=== PATIENT | male | born 1965 | race Caucasian/White ===

== ENCOUNTER 2018-05-23 05:30 | Inpatient (IN) | payer OTHER ==
[~2018-05-23] VITALS: Ht 170.2 cm; Wt 100.5 kg
[2018-05-23] MEDS ORDERED: HEPARIN 1,000 UNITS/ML, 30ML ONE (05:55)
[2018-05-23] MEDS ORDERED: LACTATED RINGERS 1,000 ML IV SCH (06:25)
[2018-05-23] MEDS ORDERED: LISI2.5T PO (06:33)
[2018-05-23] MEDS ORDERED: COLC0.6C3 PO (06:33)
[2018-05-23] MEDS ORDERED: ATOR-2 PO (06:33)
[2018-05-23] MEDS ORDERED: METO25TA35 PO (06:33)
[2018-05-23] MEDS ORDERED: ASPI-496 PO (06:33)
[2018-05-23] MEDS ORDERED: ALLO300T PO (06:33)
[2018-05-23] MEDS ORDERED: LIDOCAINE 1%-EPI 1:100K, 20ML ONE (06:59)
[2018-05-23] MEDS ORDERED: THROMBIN 5,000 UNIT VIAL TP ONE (06:59)
[2018-05-23] MEDS ORDERED: VANCOMYCIN 1,000 MG ONE (06:59)
[2018-05-23] MEDS ORDERED: BACITRACIN 50,000 UNIT ONE (06:59)
[2018-05-23] MEDS ORDERED: MIDAZOLAM 1 MG/ML, 2ML ONE (07:14)
[2018-05-23] MEDS ORDERED: FENTANYL PF 250 MCG/5ML ONE (07:22)
[2018-05-23] MEDS ORDERED: FAMOTIDINE 20 MG TABLET PO ONE (07:30)
[2018-05-23] MEDS ORDERED: DIAZEPAM 5 MG TABLET PO ONE (07:30)
[2018-05-23] MEDS ORDERED: GABAPENTIN 300 MG CAPSULE PO ONE (07:30)
[2018-05-23] MEDS ORDERED: ACETAMINOPHEN 500 MG TABLET PO ONE (07:30)
[2018-05-23] MEDS ORDERED: EPHEDRINE 50 MG/ML, 1ML ONE (07:46)
[2018-05-23] MEDS ORDERED: HYDROmorphone 2 MG/ML, 1ML IVPush PRN (08:00)
[2018-05-23] MEDS ORDERED: LABETALOL 5MG/ML, 20ML IV PRN (08:00)
[2018-05-23] MEDS ORDERED: DIAZEPAM 5 MG/ML, 2ML IVPush PRN (08:00)
[2018-05-23] MEDS ORDERED: hydrALAzine 20 MG/ML, 1ML IV PRN (08:00)
[2018-05-23] MEDS ORDERED: PROMETHAZINE 25 MG/ML, 1ML IV PRN (08:00)
[2018-05-23] MEDS ORDERED: OXYcodone 5 MG/5 ML ORAL.SOL UDC PO PRN (08:00)
[2018-05-23] MEDS ORDERED: ONDANSETRON 2MG/ML, 2ML IV PRN ×2 (08:00→13:30)
[2018-05-23] MEDS ORDERED: ONDANSETRON ODT 8 MG PO PRN (08:00)
[2018-05-23] MEDS ORDERED: PROPOFOL 10 MG/ML, 20ML ONE (08:32)
[2018-05-23] MEDS ORDERED: ROCURONIUM 10MG/ML,5ML ONE (08:32)
[2018-05-23] MEDS ORDERED: GLYCOPYRROLATE 0.2MG/1ML, 5ML ONE (08:32)
[2018-05-23] MEDS ORDERED: ONDANSETRON 2MG/ML, 2ML ONE (08:32)
[2018-05-23] MEDS ORDERED: CEFAZOLIN 1,000 MG ONE (08:32)
[2018-05-23] MEDS ORDERED: NEOSTIGMINE 1 MG/ML, 10ML ONE (08:32)
[2018-05-23] MEDS ORDERED: DEXAMETHASONE 4 MG/ML, 1ML ONE (08:32)
[2018-05-23] MEDS ORDERED: SUCCINYLCHOLINE 20 MG/ML, 10ML ONE (08:32)
[2018-05-23] MEDS ORDERED: HEPARIN 1,000 UNITS/ML, 30ML IVPB ONE (08:58)
[2018-05-23] MEDS ORDERED: SUGAMMADEX 200 MG/2 ML IVPush ONE (08:58)
[2018-05-23] MEDS ORDERED: MEPERIDINE/PF 50 MG/ML ONE (09:18)
[2018-05-23] MEDS ORDERED: FENTANYL PF 100 MCG/2ML ONE (10:01)
[2018-05-23] MEDS ORDERED: OXYcodone 5 MG/5 ML ORAL.SOL UDC ONE (10:01)
[2018-05-23] MEDS: FENTANYL PF 100 MCG/2ML IV PRN ×2 (10:05→10:30)
[2018-05-23] MEDS ORDERED: METOCLOPRAMIDE 5 MG/ML, 2ML ONE (10:11)
[2018-05-23] MEDS ORDERED: METOCLOPRAMIDE 5 MG/ML, 2ML IVPush ONE (11:00)
[2018-05-23] MEDS ORDERED: HYDROcodone/APAP 5/325 TABLET PO PRN (13:30)
[2018-05-23] MEDS ORDERED: DIPHENHYDRAMINE 50 MG/ML, 1ML IVPush PRN (13:30)
[2018-05-23] MEDS ORDERED: DIAZEPAM 5 MG TABLET PO PRN (13:30)
[2018-05-23] MEDS ORDERED: PROMETHAZINE 25 MG/ML, 1ML IM PRN (13:30)
[2018-05-23] MEDS ORDERED: MAGNESIUM HYDROXIDE 8%, 30ML UDC PO PRN (13:30)
[2018-05-23] MEDS ORDERED: BISACODYL 10 MG SUPP PR PRN (13:30)
[2018-05-23] MEDS ORDERED: DIPHENHYDRAMINE 50 MG/ML, 1ML IM PRN (13:30)
[2018-05-23] MEDS ORDERED: HYDROcodone/APAP 10/325 MG TABLET PO PRN (13:30)
[2018-05-23] MEDS ORDERED: morphine SULFATE 10 MG/ML, 1ML IV PRN (13:30)
[2018-05-23] MEDS ORDERED: DIPHENHYDRAMINE 50 MG CAPSULE PO PRN (13:30)
[2018-05-23 13:32] VITALS: BP 143/76
[2018-05-23] MEDS: D5%-0.9% NACL+KCL 20MEQ 1,000 ML IV SCH (14:08)
[2018-05-23] MEDS: METOCLOPRAMIDE 5 MG/ML, 2ML IV SCH ×2 (14:08→20:06)
[2018-05-23] MEDS ORDERED: COLCHICINE 0.6 MG TABLET PO ONE (15:00)
[2018-05-23] MEDS: CEFAZOLIN PMX 1GM/50ML 50 ML IVPB SCH (15:52)
[2018-05-23 20:38] VITALS: BP 113/64
[2018-05-23] MEDS ORDERED: ATORVASTATIN 80 MG TABLET PO SCH (21:00)
[2018-05-23 23:28] VITALS: BP 115/66
[2018-05-24] MEDS: D5%-0.9% NACL+KCL 20MEQ 1,000 ML IV SCH ×2 (00:47→09:30)
[2018-05-24] MEDS: CEFAZOLIN PMX 1GM/50ML 50 ML IVPB SCH (00:47)
[2018-05-24] MEDS: METOCLOPRAMIDE 5 MG/ML, 2ML IV SCH ×2 (02:03→07:30)
[2018-05-24 03:35] VITALS: BP 123/69
[2018-05-24 04:42] LABS: BASOPHILS # (AUTO) 0.04 x10^3/uL (0-0.1); BASOPHILS % (AUTO) 0 % (0-1); EOSINOPHILS % (AUTO) 2 % (1-7); LYMPHOCYTES # (AUTO) 1.39 x10^3/uL (1-3.4); LYMPHOCYTES % (AUTO) 13 % (22-44); MD NO; MEAN CORPUSCULAR HGB CONC 33.9 g/dL (33.2-36.2); MEAN CORPUSCULAR VOLUME 91.3 fL (81-97); MEAN PLATELET VOLUME 9.8 fL (7.4-10.4); MONOCYTES # (AUTO) 0.99 x10^3/uL (0.2-0.8); MONOCYTES % (AUTO) 9 % (2-9); NEUTROPHILS # (AUTO) 8.46 x10^3/uL (1.8-6.8); NEUTROPHILS % (AUTO) 76 % (42-75); PLATELET COUNT 164 x10^3/uL (130-400); RED BLOOD COUNT 4.39 x10^6/uL (4.38-5.82)
[2018-05-24 04:57] LABS: ANION GAP 6 mmol/L (5-15); CHLORIDE 110 mmol/L (98-107)
[2018-05-24 04:59] LABS: CREATININE 0.79 mg/dL (0.7-1.3)
[2018-05-24] MEDS: ENOXAPARIN 30 MG/0.3 ML SQ SCH ×2 (05:53→10:47)
[2018-05-24 07:25] VITALS: BP 147/75
[2018-05-24] MEDS ORDERED: COLCHICINE 0.6 MG TABLET PO SCH (09:00)
[2018-05-24] MEDS ORDERED: SENNA/DOCUSATE TABLET PO SCH (09:00)
[2018-05-24] MEDS ORDERED: LISINOPRIL 5 MG TABLET PO SCH (09:00)
[2018-05-24] MEDS ORDERED: METOPROLOL TARTRATE 25 MG TABLET PO SCH (09:00)
[2018-05-24] MEDS ORDERED: ALLOPURINOL 300 MG TABLET PO SCH (09:00)
[2018-05-24] MEDS ORDERED: HYDR-3307 PO (09:59)
[2018-05-24] MEDS ORDERED: ENOX40SY4 SQ (10:00)
== END 2018-05-24 11:30 | disposition home or self-care (01) | DRG 460 ==
LOC: ORIP 05:30 → 4NOR 10:53 → DCLOUNGE 05-24 11:05
PROVIDERS: ADMIT Orthopaedic Surgery Orthopaedic Surgery of the Spine; ATTEND Orthopaedic Surgery Orthopaedic Surgery of the Spine
PROC: 0SG30A0 Fusion of Lumbosacral Joint with Interbody Fusion Device, Anterior Approach, Anterior Column, Open Approach (ICD-10-PCS; 2018-05-23)
PROC: 0SB40ZZ Excision of Lumbosacral Disc, Open Approach (ICD-10-PCS; principal; 2018-05-23 07:30)
DX: M48.07 Spinal stenosis, lumbosacral region (principal); G89.29 Other chronic pain; M43.17 Spondylolisthesis, lumbosacral region; M51.17 Intervertebral disc disorders with radiculopathy, lumbosacral region; I25.10 Atherosclerotic heart disease of native coronary artery without angina pectoris; I25.2 Old myocardial infarction; Z95.5 Presence of coronary angioplasty implant and graft
CPT/HCPCS: 36415; 72100; 74018; 80048; 85025; 93005; C1713; C1776; G0378; J0690; J1100; J1644; J1650; J2175; J2250; J2405; J2704; J2710; J3010; J3370; J3490; C1762; J0330; J2765; J3480; J7120

== ENCOUNTER 2018-06-05 08:20 | Inpatient (IN) | payer OTHER ==
[~2018-06-05] VITALS: Ht 170.2 cm; Wt 99.9 kg
[~2018-06-05 08:20] MED LIST: ALLO300T PO; ASPI-496 PO; ATOR-2 PO; BUPIVACAINE/PF 0.25% ONE; COLC0.6C3 PO; ENOX40SY4 SQ; EPINEPHRINE 1 MG/ML, 1ML ONE; HYDR-3307 PO; LIDOCAINE 1%-EPI 1:100K, 20ML ONE; LIDOCAINE 1%-EPI 1:100K, 30ML ONE; LISI2.5T PO; METO25TA35 PO; THROMBIN 5,000 UNIT VIAL TP ONE; VANCOMYCIN 1,000 MG ONE
[2018-06-05] MEDS ORDERED: LACTATED RINGERS 1,000 ML IV SCH (08:41)
[2018-06-05 08:59] VITALS: BP 155/91
[2018-06-05] MEDS ORDERED: ONDANSETRON ODT 8 MG PO ONE (09:00)
[2018-06-05] MEDS ORDERED: OXYcodone IR 5MG TABLET PO ONE (09:00)
[2018-06-05] MEDS ORDERED: METOCLOPRAMIDE 5 MG/ML, 2ML IVPush ONE (09:00)
[2018-06-05] MEDS ORDERED: GABAPENTIN 300 MG CAPSULE PO ONE (09:00)
[2018-06-05] MEDS ORDERED: FENTANYL PF 100 MCG/2ML IV PRN (09:30)
[2018-06-05] MEDS ORDERED: MIDAZOLAM 1 MG/ML, 2ML IV PRN (09:30)
[2018-06-05] MEDS ORDERED: MEPERIDINE/PF 25MG/0.5ML IVPush PRN (09:30)
[2018-06-05] MEDS ORDERED: ONDANSETRON 2MG/ML, 2ML IVPush PRN (09:30)
[2018-06-05] MEDS ORDERED: OXYcodone 5 MG/5 ML ORAL.SOL UDC PO PRN (09:30)
[2018-06-05] MEDS ORDERED: HYDROmorphone 1 MG/ML, 1ML IV PRN (09:30)
[2018-06-05] MEDS ORDERED: LABETALOL 5MG/ML, 20ML IV PRN (09:30)
[2018-06-05] MEDS ORDERED: FENTANYL PF 100 MCG/2ML ONE ×2 (09:56→11:51)
[2018-06-05] MEDS ORDERED: MIDAZOLAM 1 MG/ML, 2ML ONE (09:56)
[2018-06-05] MEDS ORDERED: PROPOFOL 10 MG/ML, 20ML ONE (10:11)
[2018-06-05] MEDS ORDERED: CEFAZOLIN 1,000 MG ONE (10:11)
[2018-06-05] MEDS ORDERED: KETAMINE 10 MG/ML, 20ML ONE (10:11)
[2018-06-05] MEDS ORDERED: NEOSTIGMINE 1 MG/ML, 10ML ONE (10:11)
[2018-06-05] MEDS ORDERED: GLYCOPYRROLATE 0.2MG/1ML, 5ML ONE (10:11)
[2018-06-05] MEDS ORDERED: ROCURONIUM 10MG/ML,5ML ONE (10:11)
[2018-06-05] MEDS ORDERED: DEXAMETHASONE 4 MG/ML, 1ML ONE (10:11)
[2018-06-05] MEDS ORDERED: OXYcodone 5 MG/5 ML ORAL.SOL UDC ONE (13:10)
[2018-06-05] MEDS ORDERED: HYDROcodone/APAP 10/325 MG TABLET PO PRN (14:30)
[2018-06-05] MEDS ORDERED: BISACODYL 10 MG SUPP PR PRN (14:30)
[2018-06-05] MEDS ORDERED: MAGNESIUM HYDROXIDE 8%, 30ML UDC PO PRN (14:30)
[2018-06-05] MEDS ORDERED: ONDANSETRON 2MG/ML, 2ML IV PRN (14:30)
[2018-06-05] MEDS ORDERED: morphine SULFATE 10 MG/ML, 1ML IV PRN (14:30)
[2018-06-05] MEDS ORDERED: PROMETHAZINE 25 MG/ML, 1ML IM PRN (14:30)
[2018-06-05] MEDS: D5%-0.9% NACL+KCL 20MEQ 1,000 ML IV SCH (15:33)
[2018-06-05 15:49] VITALS: BP 158/93
[2018-06-05] MEDS: CEFAZOLIN PMX 1GM/50ML 50 ML IVPB SCH (18:10)
[2018-06-05] MEDS: HYDROcodone/APAP 5/325 TABLET PO PRN ×2 (18:13→22:12)
[2018-06-05 19:34] VITALS: BP 132/79
[2018-06-05] MEDS ORDERED: ATORVASTATIN 80 MG TABLET PO SCH (21:00)
[2018-06-05] MEDS: SENNA/DOCUSATE TABLET PO SCH (21:22)
[2018-06-05 23:43] VITALS: BP 113/61
[2018-06-06] MEDS: D5%-0.9% NACL+KCL 20MEQ 1,000 ML IV SCH ×2 (00:30→08:49)
[2018-06-06] MEDS: HYDROcodone/APAP 5/325 TABLET PO PRN ×2 (02:20→07:16)
[2018-06-06] MEDS: CEFAZOLIN PMX 1GM/50ML 50 ML IVPB SCH (02:20)
[2018-06-06 03:40] VITALS: BP 114/69
[2018-06-06 06:07] LABS: BASOPHILS # (AUTO) 0.01 x10^3/uL (0-0.1); BASOPHILS % (AUTO) 0 % (0-1); EOSINOPHILS # (AUTO) 0.01 x10^3/uL (0-0.4); EOSINOPHILS % (AUTO) 0 % (1-7); LYMPHOCYTES # (AUTO) 1.38 x10^3/uL (1-3.4); LYMPHOCYTES % (AUTO) 13 % (22-44); MD NO; MEAN CORPUSCULAR HEMOGLOBIN 31.1 pg (27.5-34.5); MEAN CORPUSCULAR HGB CONC 34.4 g/dL (33.2-36.2); MEAN CORPUSCULAR VOLUME 90.3 fL (81-97); MEAN PLATELET VOLUME 9.6 fL (7.4-10.4); MONOCYTES # (AUTO) 0.53 x10^3/uL (0.2-0.8); MONOCYTES % (AUTO) 5 % (2-9); NEUTROPHILS # (AUTO) 8.47 x10^3/uL (1.8-6.8); NEUTROPHILS % (AUTO) 81 % (42-75); PLATELET COUNT 179 x10^3/uL (130-400); RED BLOOD COUNT 4.41 x10^6/uL (4.38-5.82); RED CELL DISTRIBUTION WIDTH 13.2 % (9.4-14.8)
[2018-06-06 06:15] LABS: ANION GAP 9 mmol/L (5-15); CALCIUM 8.8 mg/dL (8.5-10.1); CHLORIDE 106 mmol/L (98-107); CREATININE 0.79 mg/dL (0.7-1.3)
[2018-06-06 07:56] VITALS: BP 125/77
[2018-06-06] MEDS: SENNA/DOCUSATE TABLET PO SCH (08:49)
[2018-06-06] MEDS ORDERED: ALLOPURINOL 300 MG TABLET PO SCH (09:00)
[2018-06-06] MEDS ORDERED: METOPROLOL TARTRATE 25 MG TABLET PO SCH (09:00)
[2018-06-06] MEDS ORDERED: LISINOPRIL 5 MG TABLET PO SCH (09:00)
[2018-06-06 11:27] VITALS: BP 120/75
== END 2018-06-06 12:10 | disposition home or self-care (01) | DRG 460 ==
LOC: ORIP 08:20 → 4NOR 13:47 → DCLOUNGE 06-06 11:53
PROVIDERS: ADMIT Orthopaedic Surgery Orthopaedic Surgery of the Spine; ATTEND Orthopaedic Surgery Orthopaedic Surgery of the Spine
PROC: 0SG3071 Fusion of Lumbosacral Joint with Autologous Tissue Substitute, Posterior Approach, Posterior Column, Open Approach (ICD-10-PCS; principal; 2018-06-05 11:00)
DX: M43.17 Spondylolisthesis, lumbosacral region (principal); M48.07 Spinal stenosis, lumbosacral region; I25.10 Atherosclerotic heart disease of native coronary artery without angina pectoris; I25.2 Old myocardial infarction; Z95.5 Presence of coronary angioplasty implant and graft
CPT/HCPCS: 36415; 72100; J3490; 80048; 85025; C1713; G0378; J0171; J0690; J1100; J2250; J2704; J2710; J3010; J3370; Q0162; J2765; J3480; J7120